=== PATIENT | female | born 2000 | race Caucasian/White ===

== ENCOUNTER 2024-10-07 07:40 | Emergency (ER) | payer OTHER, SELFPAY ==
[2024-10-07 07:40] VITALS: BP 141/98; PULSE 82; RESP 18; TEMP 36.7; O2SAT 98
--- OUTSIDE RECORDS SUMMARY | 2024-10-07 07:50 | XMS_ITS | Referral Summary ---
Author Organization [facility] Address [address] [place] [id number] Care Team Providers Care Media Buyer Name Role Phone No, Physician Primary Care Provider [phone] Allergies No known active allergies Medications butalbital-acet aminophen-caffe ine (ESGIC) 50-325-40 mg per tablet Take 1 tablet by mouth every 4 (four) hours as needed for headaches 30 tablet 1 Active ibuprofen (ADVIL,MOTRIN) 800 mg tabletIndicatio ns:Cramps Take 1 tablet (800 mg total) by mouth every 8 (eight) hours as needed for pain 60 tablet 1 Active Active Problems Problem Noted Date Diagnosed Date Normal course 12/10/2020 Overview (12/10/2020): 12/10/2020, PPD 1 -skk: Rh positive, rubella immune Formula feeding Ambulating, voiding, tolerating regular diet, pain tolerable Normal exam H&H is good Continue routine care Encounter for elective induction of labor 2020 Overview (12/09/2020): Pt admitted. She will 25 mcg cytotec. 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 Never 12/09/2020 Average Number of Drinks Not on file 021 Q3: How often do you have si x or more drinks on one occasion? Never 12/09/2020 [place] Depression Scale Answer Date Recorded [place] Depression Scale Total 0 12/11/2020 The thought of harming myself has occurred to me . 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 Gender Identity Not on file Sexual Orientation Not on file Last Filed Vital Signs Vital Sign Reading Time Taken Comments Blood Pressure 116/75 12/24/2020 5:29 PM CDT Pulse 66 12/24/2020 5:14 PM CDT Temperature 37.1 C (98.7 F) 12/11/2020 10:45 AM CDT Respiratory Rate 16 12/11/2020 10:45 AM CDT Oxygen Saturation 98% 12/11/2020 10:45 AM CDT Inhaled Oxygen Concentration - - Weight 96.6 kg (213 lb) 12/09/2020 6:32 AM CDT Height 168.9 cm (5' 6.5) 12/09/2020 6:32 AM CDT Body Mass Index 33.86 12/09/2020 6:32 AM CDT Plan of Treatment Not on file Insurance [facility] Advance Directives For more information, please contact: [phone] * Full Code (Latest Code Status on File) Date Activated Date Inactivated Comments 12/09/2020 10:01 PM 12/11/2020 5:05 PM * Full Code Date Activated Date Inactivated Comments 12/09/2020 7:17 AM 12/09/2020 10:01 PM Full CPR in case of cardiopulmonary arrest Care Teams Media Buyer Relationship Specialty Start Date End Date No, Physician PCP - General 12/09/20
--- OUTSIDE RECORDS SUMMARY | 2024-10-07 07:50 | XMS_ITS | Encounter Summary ---
Author Organization [facility] Address [address] [place] [address] Care Team Providers Care Water Plant Pump Operator Supervisor Name Role Phone No, Physician Primary Care Provider [phone] Encounter Details Date Type Department Care Team (Late st Contact Info) Description 12/11/2020 Documentation [facility] [place] [address] Kenny Aparicio MD [address] [facility] [address] [place] [address] Anesthesia Record Procedure Summary Procedure Name Responsible Anesthesiologist Anesthesia Start Time Anesthesia Stop Time Labor Analgesia Dwayne Diggs MD 12/09/20 1314 12/09/20 2045 Events Date Time Event Comment 12/09/2020 1314 An Start 1314 Face Time 1321 Time out - Regional 1332 Epidural Placed 2035 Baby Delivered 2044 An Stop Meds * Agents No agents on file. * Blood No blood administrations on file. Lines, Drains, and Airways Type Details Placement Removal Epidural Placement Date: 12/09/20; Placement Time: 1352 (created via procedure documentation) 12/09/20 1352 by Addie Jefferson CRNA Epidural Placement Date: 12/09/20; Location: Thoracic (1-12); 12/09/20; 2100 12/09/20 0000 by Margaret Higgins RN 12/09/20 2100 by Aga Brooks RN Peripheral IV Placement Date: 12/09/20; Placement Time: 0720; Catheter Size: 18 G; Orientation: Left, Posterior; Location: Hand; Site Prep: Chlorhexidine; Technique: Anatomical landmarks; Inserted by: Korey Rodney RN; Insertion Attempts: 1; Patient Tolerance: Tolerated well; Removal Date: 12/10/20; Removal Time: 1559 12/09/20 0720 by Nimo Rodney RN 12/10/20 1559 by Sabiha Leiva RN Urethral Catheter Placement Date: 12/09/20; Placement Time: 1400; Inserted by: Samuel Higgins RN; Type: Latex; Size: 16 Fr.; Balloon Size: 10 mL; Urine Returned: Yes; Removal Date: 12/09/20; Removal Time: 2029; Removal Reason: Per protocol 12/09/20 1400 by Margaret Higgins RN 12/09/20 2030 by Aga Brooks RN documented in this encounter Social History Tobacco Use Types Packs/Day Years [...] more drinks on one occasion? Never 12/09/2020 [place] Depression Scale Answer Date Recorded [place] Depression Scale Total 0 12/11/2020 The thought of harming myself has occurred to me . 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
--- OUTSIDE RECORDS SUMMARY | 2024-10-07 07:50 | XMS_ITS | Clinical Summary ---
Author Organization [facility] Address [address] [place] [address] Care Team Providers Care Velocity Shooter Name Role Phone Britni Lizarraga Primary Care Provider [phone] Source Comments [facility],non-owned Affiliates and Associated Physician Practices is amultiple site organization consisting of ambulatory clinics and hospital sitesin [place], [place], [place] and [place]. This disclosure is being madepursuant to the Care Everywhere program and may not contain all information available regarding this patient. Last updated 18.[facility] Social History Tobacco Use Types Packs/Day Years Used Date Smoking Tobacco: Never Assessed Comments Unknown Sex and Gender Information Value Date Recorded Sex Assigned at Not on file Legal Sex Female 3:21 PM CDT Gender Identity Not on file Sexual Orientation Not on file Plan of Treatment Health Maintenance Due Date Last Done Comments PAP SMEAR 1999 HIV SCREENING 09/15/2014 HPV VACCINE (1 - 3-dose series) 09/15/2014 CHLAMYDIA/GONORRHEA SCREENING 2015 HEPATITIS C SCREENING 09/11/2017 DTAP/TDAP/TD VACCINES (1 - Tdap) 09/15/2018 HEPATITIS B VACCINE (1 of 3 - 19+ 3-dose series) 09/15/2018 COVID-19 VACCINE ( - 2023-2 5 season) 2023 DEPRESSION SCREENING 05/01/2024 INFLUENZA VACCINE (Season Ended) 2024 01/31/20 09 ZOSTER VACCINE (1 of 2) 09/15/2049 HIB VACCINE Aged Out No longer eligi ble based on patient's age to complete this topic MENINGOCOCCAL (Group B) VACC INE SHARED DECISION-MAKING Aged Out No longer eligibl e based on patient's age to complete this topic MENINGOCOCCAL GROUPS A/C/Y/W VACCINE Aged Out No longer eligible b ased on patient's age to complete this topic PNEUMOCOCCAL VACCINE Aged Out No long er eligible based on patient's age to complete this [place] [address] [place] [address] Care Teams Velocity Shooter Relationship Specialty Start Date End Date Britni Lizarraga [address] [place] [address] PCP - General 04/10/23
--- OUTSIDE RECORDS SUMMARY | 2024-10-07 07:50 | XMS_ITS | Clinical Summary ---
Author Organization [facility] Address [address] [place] [id number] Care Team Providers Care Correspondence Analyst Name Role Phone No, Physician Primary Care Provider [phone] Allergies No known active allergies Medications butalbital-acet [...] Dates Next Due MMR 12/10/2020(Deferred: Contraindication),12/10/2020(Deferred: Contraindication) Medical History Medical History Date Comments Depression Family History Medical History Relation Name Comments Diabetes Father Hypertension Father No Known Problems Mother defects Neg Hx Ovarian cancer Neg Hx Uterine cancer Neg Hx Relation Name Status Comments Father Alive Mother Alive Social History Tobacco Use Types Packs/Day Years [...] more drinks on one occasion? Never 12/09/2020 [place] Depression Scale Answer Date Recorded [place] Depression Scale Total 0 12/11/2020 The thought of harming myself has occurred to me . 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 Gender Identity Not on file Sexual Orientation Not on file Obstetrics History Para Term AB IAB SAB Ectopic Multiple Livin g Live Births 2 2 2 0 2 2 Date Outcome GA Total Labor Labor/2nd/3rd Weight Sex Type Anes PTL Candi A1 A5 Name Clin 2018 Term 40w 5d 4.139 kg (9 lb 2 oz) M Vag-S pont Epidur al N Livin g Complications:Post He morrhage Delivery Location:[facility] 2020 Term 39w 0d 2h 19m 2h 10m/0h 06m/0h 03m 3.38 kg (7 lb 7.2 oz) M Vag-S pont Epidur al N Livin g 8 9 MARZENA FELIZB Latrell Ward n, DO Complications:None Delivery [facility] Last Filed Vital Signs Vital Sign Reading [...] Plan of Treatment Not on file Insurance Advance Directives For more information, please contact: [phone] * Full Code (Latest Code Status on File) Date Activated Date Inactivated Comments 12/09/2020 10:01 PM 12/11/2020 5:05 PM * Full Code Date Activated Date Inactivated Comments 12/09/2020 7:17 AM 12/09/2020 10:01 PM Full CPR in case of cardiopulmonary arrest Care Teams Correspondence Analyst Relationship Specialty Start Date End Date No, Physician PCP - General 12/09/20
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
--- OUTSIDE RECORDS SUMMARY | 2024-10-07 08:16 | XMS_ITS | Clinical Summary ---
Author Organization [facility] Address [address] [place] [phone] Care Team Providers Care Borematic Operator Name Role Phone No, Physician Primary Care Provider [phone] Allergies No known active allergies Medications butalbital-acet [...] more drinks on one occasion? Never 12/09/2020 [place] Depression Scale Answer Date Recorded [place] Depression Scale Total 0 12/11/2020 The thought of harming myself has occurred to me . 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 Gender Identity Not on file Sexual Orientation [...] N Livin g Complications:Post He morrhage Delivery Location:[facility] 2020 Term 39w 0d 2h 19m 2h [...] Advance Directives For more information, please contact: [phone] * Full Code (Latest Code Status on File) Date Activated Date Inactivated Comments 12/09/2020 10:01 PM 12/11/2020 5:05 PM * Full Code Date Activated Date Inactivated Comments 12/09/2020 7:17 AM 12/09/2020 10:01 PM Full CPR in case of cardiopulmonary arrest Care Teams Borematic Operator Relationship Specialty Start Date End Date No, Physician PCP - General 12/09/20
--- OUTSIDE RECORDS SUMMARY | 2024-10-07 08:16 | XMS_ITS | Referral Summary ---
Author Organization [facility] Address [address] [place] [phone] Care Team Providers Care Residential Treatment Counselor Name Role Phone No, Physician Primary Care Provider [phone] Allergies No known active allergies Medications butalbital-acet [...] more drinks on one occasion? Never 12/09/2020 [place] Depression Scale Answer Date Recorded [place] Depression Scale Total 0 12/11/2020 The thought of harming myself has occurred to me . 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
--- OUTSIDE RECORDS SUMMARY | 2024-10-07 08:16 | XMS_ITS | Clinical Summary ---
Author Organization [facility] Address [address] [place] [address] Care Team Providers Care Learning Disabilities Resource Teacher Name Role Phone Britin Lizarraga Primary Care Provider [phone] Source Comments [facility],non-owned Affiliates and Associated Physician Practices is amultiple site organization consisting of ambulatory clinics and hospital sitesin [place], [place], [place] and [place]. This disclosure is being madepursuant to the Care Everywhere program and may not contain all information available regarding this patient. Last updated 18.[facility] Social History Tobacco Use Types Packs/Day Years [...] patient's age to complete this topic [place] [address] [place] [address] Care Teams Learning Disabilities Resource Teacher Relationship Specialty Start Date End Date Britni Lizarraga [address] [place] [address] PCP - General 04/10/23
--- OUTSIDE RECORDS SUMMARY | 2024-10-07 08:16 | XMS_ITS | Data Portability ---
Author Organization [facility], [address] [place] [address] [place]rology ([place]) Address [address] [address] Assessment Encounter Date Assessment Date Assessment LastModified by Organization Details LastModified Time 06/04/2024 06/04/2024 Rosacea: Discussed etiology and treatment options. Discussed triggers. Discussed treatment with topicals and oral tetracyclines. Patient is going to try metronidazole cream once daily to a clean face. Sun protective measures and avoidance of triggers discussed. If this doesn't help, will start patient on minocycline 100 mg once a day. Discussed adverse effects of the medication including sun sensitivity, GI upset, and headaches. Patient will call us with questions or concerns. [email or web address] Not available 06/04/2024 12:12:51 Plan of Treatment Reminders Order Date Submit Date Provider Last Modified By Organization Details Last Modified Time Details Appointments None record ed. Lab None record ed. Referral None record ed. Procedures None record ed. Surgeries None record ed. Imaging None record ed. Medication Orders None record ed. Patient TargetsNo targets recorded. Patient InstructionsNo instructions recorded. Reason for Referral None Reported. Problems Name Problem SNOMED Code Status Onset Date Resolution Date Notes Provider Name and Address Organization Details Recorded Time Rosacea [id number] Active 025 Harmony Workman PA-C [address] , [place], [address] , [facility] 06/04/2024 12:08:00 Problem Notes None recorded. Medical Equipment None Reported. Allergies No known drug allergies Medications Name Sig Start Date Stop Date Status Note LastModified by Organization Details LastModified Time minocycline 100 mg capsule take one capsule once daily 2024 active Not Available Not Available Not Avai lable topiramate 25 mg tablet TAKE 1 TABLET BY MOUTH TWICE A DAY active Not Available Not Available No t Available metronidazole 0.75 % topical cream APPLY A THIN LAYER TO THE AFFECTED AREA(S) BY TOPICAL ROUTE once a day to a clean face 2024 active Not Available Not Available Not Avai lable Vitals None Recorded Social History None recorded. Functional Status None recorded. Mental Status None recorded. Family History Nothing Reported Notes:denies fam hx of skin cancer Medical History Condition Response Skin Problems Gynecological HistoryNo gynecological history recorded. Obstetrics History GPAL:G 0 P 0 0 0 0 Past Encounters Encounter ID Performer Location Encounter Start Date Encounter Closed Date Diagnosis/Indication Diagnosis SNOMED-CT Code Diagnosis ICD10 Code Diagnosis Note [id number] Harmony Workman PA-C [facility] [address] [place] [address] 06/04/2024 11:32:14 06/04/2024 12:12:37 Rosacea [id number] L71.9 Health Concerns Section Related Observation LastModified by Organization Detai ls LastModified Time None Recorded Concern Status LastModified by Organization Details LastModified Time None Recorded Advance Directives Directive None Recorded Payers Insurance Date Sequence Insurance Name Policy Number Policy Santiago Covered Member ID Santiago Member ID Guarantor Name 06/02/2024 1 [id number] (MEDICAID REPLACEMENT - HMO) Liudmila Avila [id number] Liudmila Avila Notes Date Note Type Note Provider Name and Address Organization Details Recorded Time 06/04/2024 text/html QUALITY TECH Rash on face. pt has red irritate rash to bilateral cheeks that started a year ago. Harmony Workman PA-C [address] [place] [address], [phone], [facility] 06/04/2024 12:13:10 OBGyn Episode No OBEpisode recorded.
--- OUTSIDE RECORDS SUMMARY | 2024-10-07 08:16 | XMS_ITS | Encounter Summary ---
Author Organization [facility] Address [address] [place] [address] Care Team Providers Care Lead Medical Technologist Name Role Phone No, Physician Primary Care Provider [phone] Encounter Details Date Type Department Care Team (Late st Contact Info) Description 12/11/2020 Documentation [facility] Anesthesia [facility] [place] [address] Kenny Aparicio MD [address] [facility] [address] [place] [address] Anesthesia Record Procedure Summary Procedure Name Responsible [...] more drinks on one occasion? Never 12/09/2020 [place] Depression Scale Answer Date Recorded [place] Depression Scale Total 0 12/11/2020 The thought of harming myself has occurred to me . 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
== END 2024-10-07 08:15 | disposition home or self-care (01) ==
PROVIDERS: Emergency Provider Emergency Medicine; PCP Internal Medicine
DX: S46.812A Strain of other muscles, fascia and tendons at shoulder and upper arm level, left arm, initial encounter (principal); S86.811A Strain of other muscle(s) and tendon(s) at lower leg level, right leg, initial encounter; X58.XXXA Exposure to other specified factors, initial encounter
CPT/HCPCS: 99283